=== PATIENT | female | born 1975 | race Caucasian/White ===

== ENCOUNTER → 2020-10-02 | Outpatient (CLI) | payer BC | LOC: HEART 5 07:30 | DX: R00.1 Bradycardia, unspecified (principal) ==

== ENCOUNTER → 2020-12-10 | Outpatient (CLI) | payer BC | LOC: ECHO 10:00 | DX: R06.02 Shortness of breath (principal) | CPT/HCPCS: ECHO; 93306 ==

== ENCOUNTER → 2022-01-27 | Outpatient (CLI) | payer BC | LOC: KOH-I 14:00 | DX: E04.9 Nontoxic goiter, unspecified (principal) | CPT/HCPCS: 76536 ==